=== PATIENT | female | born 2000 | race Caucasian/White ===

== ENCOUNTER 2021-02-18 12:09 | Emergency (ER) | payer OTHER ==
[2021-02-18 12:42] VITALS: BP 99/62; PULSE 57; TEMP 97.6; BMI 19.3
[2021-02-18 14:14] LABS: EPI CELLS 27 /uL (0-25.1); HYALINE CASTS 3 /uL (0-3.1); PH,URINE 5.5 (5.0-8.0); URINE APPEARANCE CLEAR; URINE BACTERIA 1074 /uL (0-1359); URINE BILIRUBIN NEGATIVE (NEGATIVE); URINE COLOR YELLOW; URINE GLUCOSE (UA) NEGATIVE (NEGATIVE); URINE KETONE NEGATIVE (NEGATIVE); URINE LEUK ESTERASE NEGATIVE (NEGATIVE); URINE NITRITE NEGATIVE (NEGATIVE); URINE PROTEIN 2+ (NEGATIVE); URINE RBC 12 /uL (0-23.9); URINE UROBILINOGEN 0.2 mg/dL (0.2-1.0); URINE WBC 12 /uL (0-25.8)
[2021-02-18 14:15] LABS: HCG,QUALITATIVE URINE Negative
[2021-02-18] MEDS ORDERED: IBUPROFEN 100 MG/5 ML UNIT DOSE CUPS PO ONE (14:23)
[2021-02-18] MEDS ORDERED: IBUPROFEN 100 MG/5 ML UNIT DOSE CUPS ONE (14:30)
[2021-02-18 14:35] LABS: BASO % 0.9 % (0-2.0); HEMATOCRIT 37.8 % (32.4-45.2); LYMPH % 39.8 % (8-40); MCH 29.8 pg (25.7-33.7); MCHC 34.3 g/dl (32.0-36.0); MEAN PLT VOLUME 8.6 fl (7.5-11.1); MONO % 8.9 % (3.8-10.2); NEUT % 48.4 % (42.8-82.8); PLATELET COUNT 271 10^3/uL (134-434); RBC 4.35 M/mm3 (3.60-5.2); RDW 13.6 % (11.6-15.6); WHITE BLOOD COUNT 5.5 K/mm3 (4.0-10.0)
[2021-02-18 14:56] LABS: BLOOD UREA NITROGEN 8.7 mg/dL (7-18); CALCIUM 9.2 mg/dL (8.5-10.1)
[2021-02-18 14:59] LABS: CREATININE 0.6 mg/dL (0.55-1.3)
[2021-02-18 15:01] LABS: BILIRUBIN,TOTAL 0.6 mg/dL (0.2-1); TOT PROT 7.4 g/dl (6.4-8.2)
== END 2021-02-18 15:05 | disposition home or self-care (01) ==
LOC: JER 12:09
DX: R10.10 Upper abdominal pain, unspecified (principal)
CPT/HCPCS: 36415; 80053; 81003; 84703; 85025; 87086; 87186; 99284-25

== ENCOUNTER 2021-07-29 16:42 | Emergency (ER) | payer SELFPAY ==
[2021-07-29 16:56] VITALS: BP 110/75; PULSE 90; TEMP 98; BMI 19.3
[2021-07-29] MEDS ORDERED: ACETAMINOPHEN 325 MG TABLET (FP) PO ONE (17:34)
[2021-07-29] MEDS ORDERED: ACETAMINOPHEN 325 MG TABLET (FP) ONE (17:49)
[2021-07-29 18:11] LABS: EPI CELLS >36 /uL (0-25.1); HCG,QUALITATIVE URINE Negative; HYALINE CASTS 12 /uL (0-3.1); URINE APPEARANCE CLOUDY; URINE BACTERIA 7127 /uL (0-1359); URINE BILIRUBIN NEGATIVE (NEGATIVE); URINE COLOR YELLOW; URINE GLUCOSE (UA) NEGATIVE (NEGATIVE); URINE KETONE 1+ (NEGATIVE); URINE LEUK ESTERASE NEGATIVE (NEGATIVE); URINE NITRITE NEGATIVE (NEGATIVE); URINE PROTEIN 1+ (NEGATIVE); URINE RBC 15 /uL (0-23.9); URINE UROBILINOGEN 0.2 mg/dL (0.2-1.0)
[2021-07-29 19:33] LABS: URINE WBC 468 /uL (0-25.8)
== END 2021-07-29 18:30 | disposition home or self-care (01) ==
LOC: JERFT 16:42 → JER 16:42 → JERFT 18:30
DX: N30.00 Acute cystitis without hematuria (principal)
CPT/HCPCS: 36415; 81003; 84703; 87086; 87186; 87491; 87591; 99283-25

== ENCOUNTER 2024-07-31 14:38 | Emergency (ER) | payer OTHER ==
[2024-07-31 15:05] VITALS: BP 113/65; PULSE 85; RESP 18; TEMP 98.3; BMI 21.7
[2024-07-31 15:53] LABS: BASO % 0.7 % (0-2.0); EOS % 1.4 % (0-4.5); HEMATOCRIT 42.9 % (32.4-45.2); HEMOGLOBIN 14.5 GM/dL (10.7-15.3); LYMPH % 23.6 % (8-40); MCH 29.3 pg (25.7-33.7); MCHC 33.8 g/dl (32.0-36.0); MEAN CELL VOLUME 86.8 fl (80-96); MEAN PLT VOLUME 8.8 fl (7.5-11.1); MONO % 6.3 % (3.8-10.2); PLATELET COUNT 313 10^3/uL (134-434); RBC 4.95 M/mm3 (3.60-5.2); RDW 13.5 % (11.6-15.6); WHITE BLOOD COUNT 8.7 K/mm3 (4.0-10.0)
[2024-07-31 16:09] LABS: EPI CELLS 28 /uL (0-25.1); HYALINE CASTS 3 /uL (0-3.1); PH,URINE 5.5 (5.0-8.0); URINE APPEARANCE CLEAR; URINE BACTERIA 557 /uL (0-1359); URINE BILIRUBIN NEGATIVE (NEGATIVE); URINE COLOR YELLOW; URINE GLUCOSE (UA) NEGATIVE (NEGATIVE); URINE KETONE TRACE (NEGATIVE); URINE LEUK ESTERASE NEGATIVE (NEGATIVE); URINE NITRITE NEGATIVE (NEGATIVE); URINE PROTEIN 2+ (NEGATIVE); URINE RBC 18 /uL (0-23.9); URINE WBC 38 /uL (0-25.8)
[2024-07-31 16:10] LABS: HCG,QUALITATIVE URINE Negative
[2024-07-31 16:12] LABS: CHLORIDE 104 mmol/L (98-107); POTASSIUM 3.8 mmol/L (3.5-5.1); SODIUM 140 mmol/L (136-145)
[2024-07-31 16:14] LABS: ANION GAP 10 mmol/L (4-13); BLOOD UREA NITROGEN 11.4 mg/dL (7-18); CALCIUM 10.3 mg/dL (8.5-10.1); CO2 25 mmol/L (21-32)
[2024-07-31 16:15] LABS: GLUCOSE,RANDOM 100 mg/dL (74-106)
[2024-07-31 16:18] LABS: CREATININE 0.7 mg/dL (0.55-1.3)
[2024-07-31 17:10] LABS: HIV INTERPRETATION NEGATIVE (NEGATIVE)
== END 2024-07-31 16:26 | disposition home or self-care (01) ==
LOC: JERFT 14:38
DX: N39.0 Urinary tract infection, site not specified (principal); M54.50 Low back pain, unspecified; R14.0 Abdominal distension (gaseous)
CPT/HCPCS: 36415; 80048; 81003; 84702; 84703; 85025; 86803; 86850; 86900; 86901; 87086; 87186; 87389; 99283-25